=== PATIENT | female | born 1950 | race Caucasian/White ===

== ENCOUNTER → 2023-01-10 | Outpatient (CLI) | payer MEDICARE, OTHER, SELFPAY ==
--- NOTE | 2023-01-10 12:36 | MRI_ITS ---
INDICATION: FAMILY HX ANEURYSM, DIZZINESS, LIGHTHEADED EXAMINATION: MRI - MR Brain WO/W Contrast TECHNIQUE: Multiplanar and multisequence MR images of the brain were obtained without and with gadolinium. IV Contrast Dosage and Agent: 19 mL Clariscan COMPARISON: No relevant prior comparison study available FINDINGS: BRAIN PARENCHYMA: No MRI evidence of hemorrhage. No evidence of acute infarct. No intracranial mass or mass effect. There is preservation of the gabriel/white matter interface. Scattered subcortical and periventricular foci of T2 prolongation statistically relate to chronic small vessel ischemic disease in patients of this age. No areas of abnormal brain parenchymal enhancement. Normal sella turcica, pituitary gland, infundibular stalk, optic chiasm and hypothalamus. Posterior fossa structures are unremarkable. CSF SPACES: Appropriate for age. No hydrocephalus. Basal cisterns are patent. VASCULAR SYSTEM: Normal flow voids in the major intracranial circulation. CALVARIUM, SKULL BASE, PARANASAL SINUSES AND MASTOID AIR CELLS: Clear. No expansile changes. ORBITS: Both globes, extraocular muscles, optic nerves and retrobulbar fat appear unremarkable. MRI/Brain W/WO Contrast IMPRESSION: No acute or subacute intracranial pathology. Mild chronic white matter small vessel ischemic changes. Electronically Signed: Brendan Cunningham MD at 16:10 EDT Reading Location ID and State: [facility] / [place] Tel , Service support ,
[2023-01-10 13:10] LABS: CREATININE FINGERSTICK < 0.9 mg/dL (0.55-1.02); EGFR FINGERSTICK > 60.0000 mL/min (>60)
== END | disposition home or self-care (01) ==
LOC: MRI 12:28
PROVIDERS: PCP Internal Medicine; Referring Provider Internal Medicine; Visit Provider Internal Medicine
DX: R42 Dizziness and giddiness (principal); Z84.89 Family history of other specified conditions
CPT/HCPCS: 70553; A9575